=== PATIENT | male | born 1995 | race African-American/Black ===

== ENCOUNTER 2025-01-07 08:27 | Emergency (ER) | payer OTHER ==
[2025-01-07 08:31] VITALS: BP 142/86; PULSE 87; RESP 20; TEMP 98.4
--- NOTE | 2025-01-07 09:07 | ED ---
General Adult HPI - General Chief complaint: Nausea/Vomiting/Diarrhea Stated complaint: Headache / vomiting Time Seen by Provider: 01/07/25 08:28 Source: patient Mode of arrival: ambulatory Limitations: no limitations - History of Present Illness Initial comments: Dictation was produced using [employer] dictation software. please excuse any grammatical, word or spelling errors. Chief Complaint: 29-year-old male presents emergency department for headache nausea vomiting diarrhea History of Present Illness: Patient 29-year-old male has history of headaches. States that for the last 3 to 4 days has been having headache nausea vomiting diarrhea. Patient denies any recent travel. States that he frequently gets headaches. States that it is like his usual headaches. Denies any chance of food poisoning. States that his diarrhea is nonbilious nonbloody The ROS documented in this emergency department record has been reviewed and confirmed by me. Those systems with pertinent positive or negative responses have been documented in the HPI. All other systems are other negative and/or noncontributory. - Related Data Allergies Allergy/AdvReac Type Severity Reaction Status Date / Time No Known Allergies Allergy Verified 01/07/25 08:31 Review of Systems ROS Statement: Those systems with pertinent positive or pertinent negative responses have been documented in the HPI. ROS Other: All systems not noted in ROS Statement are negative. 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 Cardiovascular: Heart regular rate and rhythm Chest: Able to complete full sentences, no retractions, no tachypnea Abdomen: abdomen soft, non-tender, non-distended, no organomegaly Musculoskeletal: Pulses present and equal in all extremities, no peripheral edema Motor: no focal deficits noted Neurological: CN II-XII grossly intact, no focal motor or sensory deficits noted Skin: Intact with no visualized rashes Psych: Normal affect and mood Limitations: no limitations Course Vital Signs 01/07/25 08:28 Temperature 98.4 F Pulse Rate 87 Respiratory 20 Rate Blood Pressure 142/86 O2 Sat by Pulse 98 Oximetry Medical Decision Making - Medical Decision Making Was pt. sent in by a medical professional or institution ([facility], [facility], urgent care, hospital, or [place] [facility] facility...) When possible be specific @ -No Did you speak to anyone other than the patient for history (EMS, parent, family, police, friend...)? What history was obtained from this source @ -No Did you review nursing and triage notes (agree or disagree)? Why? @ -I reviewed and agree with nursing and triage notes Were old charts reviewed (outside hosp., previous admission, EMS record, old EKG, old radiological studies, urgent care reports/EKG's, [place] [facility] facility records)? Report findings @ -No old charts were reviewed Differential Diagnosis (chest pain, altered mental status, abdominal pain women, abdominal pain men, vaginal bleeding, musculoskeletal, weakness, fever, dyspnea, syncope, headache, dizziness, GI bleed, back pain, seizure, CVA, palpatations, mental health)? @ -Differential Headache: Migraine, tension, cluster, carbon monoxide, central venous thrombosis, pension karma temporal arteritis, acute closure glaucoma, intercranial hemorrhage, mastoiditis, sinusitis, head injury, this is not meant to be an all-inclusive list. EKG interpreted by me (3pts min.). @ -None done X-rays interpreted by me (1pt min.). @ -None done CT interpreted by me (1pt min.). @ -None done U/S interpreted by me (1pt. min.). @ -None done What testing was considered but not performed or refused? (CT, X-rays, U/S, labs)? Why? @ -None What meds were considered but not given or refused? Why? @ -None Was smoking cessation discussed for >3mins.? @ -No Were there social determinants of health that impacted care today? How? (Homelessness, low income, unemployed, alcoholism, drug addiction, transportation, low edu. Level, literacy, decrease access to med. care, custodial, rehab)? @ -No Was there de-escalation of care discussed even if they declined (Discuss DNR or withdrawal of care, Hospice)? DNR status @ -No What co-morbidities impacted this encounter? (DM, HTN, Smoking, COPD, CAD, Cancer, CVA, ARF, Chemo, Hep., AIDS, mental health diagnosis, sleep apnea, morbid obesity)? @ -None Was patient admitted / discharged? Hospital course, mention meds given and route, prescriptions, significant lab abnormalities, going to OR and other pertinent info. @ -29-year-old well-appearing male presents to the emergency department for headache. He has history of headaches. States that his headaches associated with nausea vomiting and diarrhea. Vital signs stable. Patient well-appearing at the bedside. States that his headache is similar to his usual headaches. Given headache cocktail reevaluate at bedside 10:38 AM with improvement of symptoms. Patient discharged vies follow-up primary care doctor Did you discuss the management of the patient with other professionals (anita kinney i.e. , PA, [facility], lab, RT, psych nurse, social media project manager, picked edge sewing machine operator, teacher, casino surveillance officer, disease case manager)? Give summary @ -No Was critical care preformed (if so, how long)? @ -No Undiagnosed new problem with uncertain prognosis? @ -No Drug Therapy requiring intensive monitoring for toxicity (Heparin, Nitro, Insulin, Cardizem)? @ -No Were any procedures done? @ -No Diagnosis/symptom? Acute, or Chronic, or Acute on Chronic? Uncomplicated (without systemic symptoms) or Complicated (systemic symptoms)? @ -Headache, no high risk features Side effects of treatment? @ -No Exacerbation, Progression, or Severe Exacerbation? @ -No Poses a threat to life or bodily function? How? (Chest pain, USA, PA, pneumonia, PE, COPD, DKA, ARF, appy, cholecystitis, CVA, Diverticulitis, Homicidal, Suicidal, threat to staff... and all critical care pts) @ -No - Lab Data Result diagrams: 01/07/25 08:38 01/07/25 08:38 Lab Results 01/07/25 01/07/25 Range/Units 08:38 08:38 WBC 8.97 (4.50-10.00) 10*3/uL RBC 5.18 (4.40-5.60) 10*6/uL Hgb 15.8 (13.0-17.0) g/dL Hct 45.1 (39.6-50.0) % MCV 87.1 (80.0-97.0) fL MCH 30.5 (27.0-32.0) pg MCHC 35.0 (32.0-37.0) g/dL Plt Count 213 (140-440) 10*3/uL MPV 9.4 L (9.5-12.2) fL Immature Gran % (Auto) 0.9 % Neutrophils % 62.5 % Lymphocytes % 21.2 % Monocytes % 10.8 % Eosinophils % 4.0 % Basophils % 0.6 % Immature Gran # 0.08 H (0.00-0.04) 10*3/uL Neutrophils # 5.61 (1.80-7.70) 10*3/uL Lymphocytes # 1.90 (0.90-5.00) 10*3/uL Monocytes # 0.97 (0.20-1.00) 10*3/uL Eosinophils # 0.36 H (0.04-0.35) 10*3/uL Basophils # 0.05 (0.00-0.10) 10*3/uL Sodium 133 L (137-145) mmol/L Potassium 4.7 (3.5-5.1) mmol/L Chloride 99 (98-107) mmol/L Carbon Dioxide 26 (22-30) mmol/L Anion Gap 8 mmol/L BUN 14 (9-20) mg/dL Creatinine 1.16 (0.66-1.25) mg/dL Est GFR (CKD-EPI)AfAm >90 (>60 ml/min/1.73 sqM) Est GFR (CKD-EPI)NonAf 85 (>60 ml/min/1.73 sqM) Glucose 101 H (74-99) mg/dL Calcium 9.5 (8.4-10.2) mg/dL Disposition Clinical Impression: Headache Disposition: HOME SELF-CARE Condition: Good Instructions (If sedation given, give patient instructions): Acute Headache (ED) Is patient prescribed a controlled substance at d/c from ED?: No Referrals: None,Stated [Primary Care Provider] - 1-2 days Time of Disposition: 10:39
[2025-01-07 09:21] LABS: Basophils # (A) 0.05 10*3/uL (0.00-0.10); Basophils % (A) 0.6 %; Eosinophils # (A) 0.36 10*3/uL (0.04-0.35); Eosinophils % (A) 4.0 %; HCT 45.1 % (39.6-50.0); HGB 15.8 g/dL (13.0-17.0); Lymphocytes # (A) 1.90 10*3/uL (0.90-5.00); Lymphocytes % (A) 21.2 %; MCH 30.5 pg (27.0-32.0); MCHC 35.0 g/dL (32.0-37.0); MCV 87.1 fL (80.0-97.0); Monocytes # (A) 0.97 10*3/uL (0.20-1.00); Monocytes % (A) 10.8 %; Neutrophils # (A) 5.61 10*3/uL (1.80-7.70); Neutrophils % (A) 62.5 %; Platelet Count 213 10*3/uL (140-440); RBC 5.18 10*6/uL (4.40-5.60); RDW 12.4 % (11.5-14.5); WBC 8.97 10*3/uL (4.50-10.00)
[2025-01-07] MEDS: KETOROLAC 15 MG/ML 1 ML VIAL IVP STA (09:43)
[2025-01-07] MEDS: ONDANSETRON 4 MG/2 ML VIAL IVP STA (09:43)
[2025-01-07] MEDS: diphenhydrAMINE 50 MG/ML 1 ML VIAL IVP STA (09:43)
[2025-01-07 09:44] LABS: African American GFR (CKD) >90 (>60 ml/min/1.73 sqM); Anion Gap 8 mmol/L; Blood Urea Nitrogen 14 mg/dL (9-20); Calcium 9.5 mg/dL (8.4-10.2); Carbon Dioxide 26 mmol/L (22-30); Chloride 99 mmol/L (98-107); Glucose 101 mg/dL (74-99); Non-African American GFR(CKD) 85 (>60 ml/min/1.73 sqM); Potassium 4.7 mmol/L (3.5-5.1); Sodium 133 mmol/L (137-145)
[2025-01-07] MEDS: SODIUM CHLORIDE 0.9% 1,000 ML IV STA (09:44)
[2025-01-07] MEDS: DEXAMETHASONE SOD PHOSPHATE 10 MG/ML 1 ML VIAL IV STA (11:00)
== END 2025-01-07 11:07 | disposition home or self-care (01) ==
LOC: EC 08:27
DX: R51.9 Headache, unspecified (principal)
CPT/HCPCS: 36415; 80048; 85025; 96361; 96374; 96375; 99284